=== PATIENT | male | born 1970 | race Caucasian/White ===

== ENCOUNTER 2018-03-31 18:45 | Emergency (ER) | payer OTHER ==
[~2018-03-31] VITALS: Ht 185.4 cm; Wt 131.5 kg
[~2018-03-31 18:45] MED LIST: ATOR20TA58 PO; LEVO50TA5 PO
[2018-03-31] MEDS ORDERED: IV NORMAL SALINE 1,000ML 1,000 ML IV SCH (19:26)
--- NOTE | 2018-03-31 19:31 | PHYS DOC ---
Adult General Chief Complaint Chief Complaint: CHEST PAIN [facility] HPI Patient is a 47-year-old male who presents with complaint of chest pain that started approximately 1 hour prior to arrival. Patient states that he had been sitting down watching TV when he had a feeling of like some fluttering in his chest for short period of time like his heart skipped a beat. He states that shortly thereafter he developed burning in his chest that lasted for nearly an hour until he arrived to the emergency room. He states upon arrival to the emergency room the pain had resolved. He rates pain as mild to moderate. He does admit that he had been out drinking fairly heavily last night and so thinks that may have been part of the problem. He states that he recently had a stress test in preparation for neck surgery which had returned unremarkable. Currently patient is asymptomatic. Review of Systems Review of Systems Constitutional: Denies fever or chills [] Respiratory: Denies cough or shortness of breath [] Cardiovascular: No additional information not addressed in HPI [] GI: Denies abdominal pain, nausea, vomiting, bloody stools or diarrhea [] Musculoskeletal: Denies back pain or joint pain [] All other systems were reviewed and found to be within normal limits, except as documented in this note. Allergies Allergies Allergies Coded Allergies Type Severity Reaction Last Updated Verified Penicillins Allergy 04/29/13 Yes Physical Exam Physical Exam Constitutional: Well developed, well nourished, no acute distress, non-toxic appearance. [] HENT: Normocephalic, atraumatic, bilateral external ears normal, oropharynx moist, no oral exudates, nose normal. [] Eyes: PERRLA, EOMI, conjunctiva normal, no discharge. [] Neck: Normal range of motion, no tenderness, supple, no stridor. [] Cardiovascular: Regular rate and rhythm[] Lungs & Thorax: Bilateral breath sounds clear to auscultation [] Abdomen: Bowel sounds normal, soft, no tenderness. [] Skin: Warm, dry, no erythema, no rash. [] Extremities: No tenderness, no cyanosis, no clubbing, ROM intact, no edema. [] Neurologic: Alert and oriented X 3, no focal deficits noted. [] EKG EKG EKG demonstrates mild sinus tachycardia with rate of 103.[] Radiology/Procedures Radiology/Procedures [] Impressions: PROCEDURE: PORTABLE CHEST 1V CLINICAL INDICATION: Chest pain, heart palpitations, no hx injury or surgery COMPARISON: None FINDINGS: No pneumothorax identified. Cardiac and mediastinal contours unremarkable. No pulmonary consolidation or acute airspace disease. No acute osseous abnormalities identified. IMPRESSION: No pulmonary consolidation or acute airspace disease. Electronically signed by: Zen Santillan DO (03/31/2018 8:41 PM) [facility] Course & Med Decision Making Course & Med Decision Making Pertinent Labs and Imaging studies reviewed. (See chart for details) [] Dragon Disclaimer Dragon Disclaimer This electronic medical record was generated, in whole or in part, using a voice recognition dictation system. Departure Departure: Impression: Primary Impression: Atypical chest pain Additional Impression: Hypertension Disposition: 01 HOME, SELF-CARE Condition: STABLE Referrals: KODAK HERNANDEZ MD (PCP) Patient Instructions: Chest Pain (Nonspecific), Hypertension Scripts Lisinopril (LISINOPRIL) 10 Mg Tablet 10 MG PO DAILY for hypertension, #30 TAB 0 Refills Prov: HENRY PLAZA Jr., DO 03/31/18 Problem Qualifiers Additional Impression: Hypertension Hypertension type: essential hypertension Qualified Codes: I10 - Essential ( primary) hypertension HENRY PLAZA Jr., DO Mar 31, 2018 19:31
[2018-03-31 19:35] LABS: BASO % 0 % (0-3); EOS # 0.2 x10^3/uL (0.0-0.7); EOS % 2 % (0-3); HEMATOCRIT 46.4 % (39.0-53.0); HEMOGLOBIN 15.5 g/dL (13.0-17.5); LYMPH # 2.3 x10^3/uL (1.0-4.8); LYMPH % 20 % (24-48); MEAN CORPUSCULAR HEMOGLOBIN 30 pg (25-35); MEAN CORPUSCULAR HGB CONC 33 g/dL (31-37); MEAN CORPUSCULAR VOLUME 89 fL (79-100); MONO # 0.9 x10^3/uL (0.0-1.1); MONO % 8 % (0-9); NEUT # 8.1 x10^3uL (1.8-7.7); NEUT % 70 % (31-73); PLATELET COUNT 141 x10^3/uL (140-400); RED CELL DISTRIBUTION WIDTH 13.4 % (11.5-14.5); WHITE BLOOD COUNT 11.5 x10^3/uL (4.0-11.0)
[2018-03-31 19:43] LABS: ALBUMIN 3.8 g/dL (3.4-5.0); ALBUMIN/GLOBULIN RATIO 0.9 (1.0-1.7); CALCIUM 9.2 mg/dL (8.5-10.1); GFR 80.1; MAGNESIUM 1.8 mg/dL (1.8-2.4); POTASSIUM 3.9 mmol/L (3.5-5.1); TOTAL BILIRUBIN 0.4 mg/dL (0.2-1.0); TOTAL PROTEIN 7.9 g/dL (6.4-8.2)
[2018-03-31 20:06] LABS: BACTERIA,URINE 0 /HPF (0-FEW); BILIRUBIN,URINE NEG (NEG); CLARITY,URINE CLEAR; COLOR,URINE YELLOW; GLUCOSE,URINE >=1000 mg/dL (NEG); HYALINE CASTS, URINE FEW /HPF; NITRITE,URINE NEG (NEG); SQUAMOUS EPITHELIAL CELL,UR OCC /LPF; UROBILINOGEN,URINE 0.2 mg/dL (0.2 mg/dL)
--- NOTE | 2018-03-31 20:43 | RAD ---
PROCEDURE: PORTABLE CHEST 1V CLINICAL INDICATION: Chest pain, heart palpitations, no hx injury or surgery COMPARISON: None FINDINGS: No pneumothorax identified. Cardiac and mediastinal contours unremarkable. No pulmonary consolidation or acute airspace disease. No acute osseous abnormalities identified. IMPRESSION: No pulmonary consolidation or acute airspace disease. Electronically signed by: Zen Santillan DO (03/31/2018 8:41 PM) [facility]
[2018-03-31] MEDS ORDERED: LISINOPRIL 10 MG TABLET ONE ×2 (22:04)
[2018-03-31] MEDS ORDERED: LISI10TA2 PO (22:07)
[2018-03-31] MEDS ORDERED: LISINOPRIL 5 MG TABLET. PO ONE (22:15)
[2018-03-31 22:30] VITALS: BP 175/113
[2018-03-31] MEDS ORDERED: LISINOPRIL 10 MG TABLET PO ONE (22:30)
--- NOTE | 2018-04-01 19:46 | EKG ---
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 Electronically Signed On 04-02-2018 11:03:38 WHEEL FITTER by Philip Beatty
== END 2018-03-31 23:05 | disposition home or self-care (01) ==
LOC: ER 18:45
DX: R07.89 Other chest pain (principal); I10 Essential (primary) hypertension; Z88.0 Allergy status to penicillin
CPT/HCPCS: 36415; 71045; 80053; 81001; 83690; 83735; 84484; 85025; 93005; 99284-25; J7030

== ENCOUNTER 2019-08-11 | Observation (INO) | payer OTHER ==
[~2019-08-11] VITALS: Ht 185.4 cm; Wt 135.4 kg
[~2019-08-11] MED LIST changes: +LISI10TA2 PO
[2019-08-11] MEDS ORDERED: MORPHINE SULFATE 2 MG/ML DISP.SYRIN. IV/SQ PRN (00:15)
--- NOTE | 2019-08-11 00:15 | PHYS DOC ---
Past History Past Medical History: Diabetes, High Cholesterol, Hypertension Past Surgical History: Cervical Fusion Smoking: Cigarettes Alcohol Use: Occasionally Drug Use: None General Adult HPI: HPI: ".. I ve had thisLLt side chest pain tonight.. it been going on constant .last 3 to 4 hrs..." Patient is a 48 year old male who presents with Lt sided chest pain the last 3 and 1/2 hours. Pt. rates. pain as 08/15.. Patient does give a history of tobacco use, Elevated cholesterol, and hypertension. Patient normally follows with Dr. Lew . No history of coagulopathy or pulmonary embolism.. No history of trauma. Patient denies any previous history of heart attacks. Patient did vomit x1. Patient states pain has been constant. No recent travel. No specific ill contacts. Denies fever or chills. No history immunosuppression. Patient only follows with Dr. Lew.. Review of Systems: Review of Systems: Constitutional: Denies fever or chills Eyes: Denies change in visual acuity HENT: Denies nasal congestion or sore throat Respiratory: Denies cough or shortness of breath Cardiovascular: Complains of chest pain GI: Denies abdominal pain, nausea, vomiting, bloody stools or diarrhea : Denies dysuria Musculoskeletal: Denies back pain or joint pain Integument: Denies rash Neurologic: Denies headache, focal weakness or sensory changes Endocrine: Denies polyuria or polydipsia Lymphatic: Denies swollen glands Psychiatric: Denies depression or anxiety Heart Score: HEART Score for Chest Pain: HEART Score for Chest Pain Response (Comments) Value History Slighlty/Non-Suspicious 0 ECG Normal 0 Age >45 - < 65 1 Risk Factors 1 or 2 Risk Factors 1 Troponin < Normal Limit 0 Total 2 Risk Factors: Risk Factors: DM, Current or recent (<one month) smoker, HTN, HLP, family history of CAD, obesity. Risk Scores: Score 0 - 3: 2.5% MACE over next 6 weeks - Discharge Home Score 4 - 6: 20.3% MACE over next 6 weeks - Admit for Clinical Observation Score 7 - 10: 72.7% MACE over next 6 weeks - Early Invasive Strategies Family History: Family History: Noncontributory to presentation Current Medications: Current Meds: See nursing for home meds Allergies: Allergies: Allergies Coded Allergies Type Severity Reaction Last Updated Verified Penicillins Allergy 04/29/13 Yes Physical Exam: PE: Constitutional: Well developed, well nourished, moderate acute distress, non- toxic appearance. [] HENT: Normocephalic, atraumatic, bilateral external ears normal, oropharynx moist, no oral exudates, nose normal. [] Eyes: PERRLA, EOMI, conjunctiva normal, no discharge. Glasses Neck: Normal range of motion, no tenderness, supple, no stridor. Old surgery scars Cardiovascular: Tachycardia heart rate regular rhythm, no murmur [] Lungs & Thorax: Bilateral breath sounds equal apex with scattered wheezes on auscultation []. No pain on palpation of chest wall Abdomen: Bowel sounds normal, soft, no tenderness, no masses, no pulsatile masses. Obese. Patient claims rectal exam at this time. Patient denies any tarry stools. Skin: Warm, dry, no erythema, no rash. [] Sunburn Back: No tenderness, no CVA tenderness. [] Extremities: No tenderness, no cyanosis, no clubbing, ROM intact, no edema. No cording appreciated Neurologic: Alert and oriented X 3, normal motor function, normal sensory function, no focal deficits noted. [] Psychologic: Affect anxious, judgement normal, mood normal. [] EKG: EKG: My interpretation EKG shows a sinus rhythm with bimodal P waves. No findings of acute STEMI with contralateral changes Radiology/Procedures: Radiology/Procedures: [][address] [address] IMAGING REPORT Signed PATIENT: KWAME PHILLIPS ACCOUNT: [id number] : 1970 LOCATION: ER AGE: 48 SEX: M EXAM STATUS: REG ER ORD. PHYSICIAN: SABA RAO MD REASON: Chest pain PROCEDURE: PORTABLE CHEST 1V PORTABLE CHEST 1V INDICATION: Reason: Chest pain / Spl. Instructions: / History: . COMPARISON STUDY: 03/31/2018. FINDINGS: Lungs: Normal lung volume. No pulmonary mass or consolidation. The tracheobronchial tree and hilar structures are normal. Pleura: No pleural effusion or pneumothorax. Heart and Mediastinum: The cardiomediastinal silhouette is normal. The great vessels of the thorax are normal. IMPRESSION: No acute cardiopulmonary process. Electronically signed by: Sharonda Duarte MD (08/11/2019 1:29 AM) [facility] DICTATED AND SIGNED BY: SHARONDA DUARTE MD DATE: 08/11/19 0129 CC: SABA RAO MD; PCP,NO ~ Course & Med Decision Making: Course & Med Decision Making Pertinent Labs and Imaging studies reviewed. (See chart for details) Discussed presentation, testing and tx. plan with Dr. Richardson. Admit observation status with Cardiology consult. Impression; 1. Chest Pain 2. HTN 3. Hx. Elevated Lipids 4. Tobacco use 5. Diabetes glucose 215 6. Elevated creatinine 1.4 7. Elevated AST and ALT 45/70 8. Elevated d-dimer 1.70 9. Thrombocytopenia 113 10. Pulmonary nodule [] Dragon Disclaimer: Dragon Disclaimer: This electronic medical record was generated, in whole or in part, using a voice recognition dictation system. Departure Departure: Disposition: 01 HOME/RESIDENCE PRIOR TO ADM Condition: STABLE Referrals: PCP,NO (PCP) Justification of Admission: Justification of Admission: Justification of Admission Dx: Yes Angina: New-Onset Dragon Disclaimer This chart was dictated in whole or in part using Voice Recognition software in a busy, high-work load, and often noisy Emergency Department environment. It may contain unintended and wholly unrecognized errors or omissions. Dragon Disclaimer This chart was dictated in whole or in part using Voice Recognition software in a busy, high-work load, and often noisy Emergency Department environment. It may contain unintended and wholly unrecognized errors or omissions. SABA RAO MD Aug 11, 2019 00:15
[2019-08-11] MEDS ORDERED: NITROGLYCERIN OINT 1 GM PACKET. TP ONE (00:30)
[2019-08-11] MEDS ORDERED: FAMOTIDINE 20 MG/2 ML VIAL IVP ONE (00:30)
[2019-08-11] MEDS ORDERED: ASPIRIN CHEWABLE 81 MG TABLET. PO ONE ×2 (00:30→02:00)
[2019-08-11] MEDS ORDERED: ENOXAPARIN ** NOTE DOSE ** SYRINGE SQ ONE (00:30)
[2019-08-11 00:38] LABS: BASO % 0 % (0-3); EOS # 0.1 x10^3/uL (0.0-0.7); EOS % 2 % (0-3); HEMOGLOBIN 15.2 g/dL (13.0-17.5); LYMPH # 2.5 x10^3/uL (1.0-4.8); LYMPH % 27 % (24-48); MEAN CORPUSCULAR HEMOGLOBIN 32 pg (25-35); MEAN CORPUSCULAR HGB CONC 35 g/dL (31-37); MEAN CORPUSCULAR VOLUME 93 fL (79-100); MONO # 1.1 x10^3/uL (0.0-1.1); MONO % 12 % (0-9); NEUT # 5.5 x10^3uL (1.8-7.7); NEUT % 60 % (31-73); PLATELET COUNT 113 x10^3/uL (140-400); RED BLOOD COUNT 4.75 x10^6/uL (4.30-5.70); WHITE BLOOD COUNT 9.2 x10^3/uL (4.0-11.0)
[2019-08-11] MEDS: IV RINGERS SOLUTION,LACTATED 1,000 ML IV SCH ×2 (00:45→05:31)
[2019-08-11 00:46] LABS: CALCIUM 8.7 mg/dL (8.5-10.1); CREATININE 1.4 mg/dL (0.7-1.3); GFR 54.1; POTASSIUM 3.7 mmol/L (3.5-5.1)
[2019-08-11 00:58] LABS: ALBUMIN 3.7 g/dL (3.4-5.0); DIRECT BILIRUBIN 0.1 mg/dL (0.0-0.2); TOTAL BILIRUBIN 0.3 mg/dL (0.2-1.0); TOTAL PROTEIN 7.5 g/dL (6.4-8.2)
[2019-08-11] MEDS ORDERED: ACETAMINOPHEN 325 MG TABLET PO PRN (01:30)
[2019-08-11] MEDS ORDERED: ONDANSETRON PF 4 MG/2 ML VIAL. IVP PRN (01:30)
[2019-08-11] MEDS ORDERED: MORPHINE SULFATE 2 MG/ML DISP.SYRIN. IVP PRN (01:30)
--- NOTE | 2019-08-11 01:32 | RAD ---
PORTABLE CHEST 1V INDICATION: Reason: Chest pain / Spl. Instructions: / History: . COMPARISON STUDY: 03/31/2018. FINDINGS: Lungs: Normal lung volume. No pulmonary mass or consolidation. The tracheobronchial tree and hilar structures are normal. Pleura: No pleural effusion or pneumothorax. Heart and Mediastinum: The cardiomediastinal silhouette is normal. The great vessels of the thorax are normal. IMPRESSION: No acute cardiopulmonary process. Electronically signed by: Zachary Duarte MD (08/11/2019 1:29 AM) [facility]
[2019-08-11] MEDS ORDERED: ANTI-COAG MONITOR BY PHARMACY. MC PRN (01:45)
[2019-08-11] MEDS ORDERED: CONTRAST GIVEN. MC PRN (01:45)
[2019-08-11] MEDS ORDERED: IPRATRPIUM/ALBUTEROL 0.5/2.5MG 3 ML NEBU. ONE (01:51)
[2019-08-11] MEDS ORDERED: IOHEXOL 350 MG/ML 100 ML VIAL. IV ONE (02:00)
--- NOTE | 2019-08-11 02:47 | RAD ---
CT ANGIOGRAPHY CHEST INDICATION: Reason: Chest wall pain, short of air / Spl. Instructions: / History: . Comparison: None. TECHNIQUE: Following the uneventful administration of intravenous contrast, 75 cc Omnipaque 350, axial CT sections were obtained through the lungs and upper abdomen. Multiplanar reconstructions and MIP images were obtained. RS compliance statement: One or more of the following individualized dose reduction techniques were utilized for this examination: 1. Automated exposure control 2. Adjustment of the mA and/or kV according to patient size 3. Use of iterative reconstruction technique FINDINGS: Pulmonary arteries: Nondiagnostic evaluation of the pulmonary arteries due to suboptimal contrast opacification. Lungs and Airways: No consolidation. Middle lobe subpleural nodule measuring 0.9 cm (series 4 image 95). No abnormality of the central airways. Pleura: The pleural spaces are normal. Heart and Mediastinum: The visualized thyroid is normal in size and attenuation. No axillary or supraclavicular lymphadenopathy. No mediastinal, hilar or retrocrural lymphadenopathy. Normal cardiac size. Coronary artery atherosclerotic disease. No pericardial effusion. The great vessels of the thorax are normal. Abdomen: Hepatic steatosis.. Bones and Soft Tissues: The visualized bones and chest wall soft tissues are within normal limits. IMPRESSION: 1. Nondiagnostic evaluation of the pulmonary arteries due to suboptimal contrast opacification. 2. No consolidation. 3. Indeterminate middle lobe nodule measuring 0.9 cm. Recommend three-month follow-up chest CT to assess stability. This may be below size threshold for PET sensitivity. 4. Coronary artery atherosclerotic disease. Electronically signed by: Zachary Duarte MD (08/11/2019 2:44 AM) [facility]
[2019-08-11 02:53] LABS: BILIRUBIN,URINE NEG (NEG); CLARITY,URINE CLEAR; COLOR,URINE YELLOW; GLUCOSE,URINE >=1000 mg/dL (NEG)
[2019-08-11 02:54] LABS: BACTERIA,URINE 0 /HPF (0-FEW); NITRITE,URINE NEG (NEG); RBC,URINE 0 /HPF (0-2); SQUAMOUS EPITHELIAL CELL,UR OCC /LPF; UROBILINOGEN,URINE 0.2 mg/dL (0.2 mg/dL); WBC,URINE OCC /HPF (0-4)
[2019-08-11 02:58] LABS: BARBITURATES NEG (NEG); BENZODIAZEPINES NEG (NEG); CANNABINOIDS NEG (NEG); COCAINE NEG (NEG); METHADONE NEG (NEG); OPIATES POS (NEG); PHENCYCLIDINE NEG (NEG)
[2019-08-11 03:00] LABS: AMPHETAMINE/METHAMPHETAMINE NEG (NEG)
--- NOTE | 2019-08-11 03:53 | NUR ---
The patient, KWAME PHILLIPS, 48 y/o, M admitted by DEANDRE NANCE MD, was given written information regarding hospital policies, unit procedures and contact persons. Valuables were checked and logged. Call light in place. Will continue to monitor.
[2019-08-11 05:00] VITALS: BP 125/72
--- NOTE | 2019-08-11 05:29 | EKG ---
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
--- NOTE | 2019-08-11 05:43 | NUR ---
Pt does not know his medications. Will get the pictures of the medications in the am. Pt is a diabetic and takes Metformin however he does not check his blood sugar. Will continue to monitor.
--- NOTE | 2019-08-11 05:45 | NUR ---
Routine consult called to [facility] cardio at this time.
[2019-08-11 06:10] VITALS: BP 109/54
--- NOTE | 2019-08-11 06:57 | NUR ---
Pt admitted from ED to Covid unit. Diagnosis Chest pain and HTN. No home RT meds. Temp 98.9. Spo2 96-97% on RA. CXR- No acute Cardiopulmonary process. Pt. denies cough or SOA. Pt ordered on Duoneb txs QID. Requesting that these be cancelled. Thank you.
[2019-08-11] MEDS ORDERED: IPRATRPIUM/ALBUTEROL 0.5/2.5MG 3 ML NEBU. NEB SCH (08:00)
[2019-08-11 08:09] LABS: CALCIUM 8.6 mg/dL (8.5-10.1); CREATININE 1.2 mg/dL (0.7-1.3); GFR 64.6; POTASSIUM 3.8 mmol/L (3.5-5.1)
[2019-08-11 08:14] LABS: BASO # 0.1 x10^3/uL (0.0-0.2); BASO % 1 % (0-3); EOS # 0.1 x10^3/uL (0.0-0.7); EOS % 2 % (0-3); HEMATOCRIT 41.2 % (39.0-53.0); HEMOGLOBIN 14.1 g/dL (13.0-17.5); LYMPH # 2.6 x10^3/uL (1.0-4.8); LYMPH % 34 % (24-48); MEAN CORPUSCULAR HEMOGLOBIN 32 pg (25-35); MEAN CORPUSCULAR HGB CONC 34 g/dL (31-37); MEAN CORPUSCULAR VOLUME 93 fL (79-100); MONO # 0.8 x10^3/uL (0.0-1.1); MONO % 10 % (0-9); NEUT # 4.1 x10^3uL (1.8-7.7); NEUT % 54 % (31-73); PLATELET COUNT 96 x10^3/uL (140-400); RED BLOOD COUNT 4.42 x10^6/uL (4.30-5.70); RED CELL DISTRIBUTION WIDTH 14.1 % (11.5-14.5); WHITE BLOOD COUNT 7.7 x10^3/uL (4.0-11.0)
[2019-08-11] MEDS: NITROGLYCERIN OINT 1 GM PACKET. TP SCH ×2 (09:00→14:00)
[2019-08-11] MEDS ORDERED: ENOXAPARIN ** NOTE DOSE ** SYRINGE SQ SCH ×2 (09:00)
[2019-08-11 11:03] VITALS: BP 150/86
[2019-08-11 12:50] LABS: THYROID STIM HORMONE (TSH) 2.719 uIU/mL (0.358-3.740)
--- NOTE | 2019-08-11 12:50 | PDOC2 ---
CONSULT Date of Admission DATE: 08/11/19 TIME: 12:50 Reason for Consult: Chest pain Referring Physician: Dr. Richardson Chief Complaint Chest pain Source: Chart review, Patient Problem List Problems Medical Problems: (1) Chest pain Status: Acute History of Present Illness 48-year-old male without any previous cardiac history presented complaining of left-sided chest pain that he rated at 5/10 severity not related to exertion and aching in nature. He denied any orthopnea/PND, palpitations or syncope. Past Medical History Hypertension Hyperlipidemia Diabetes mellitus type 2 Past Surgical History Cervical fusion Family History Negative for premature coronary artery disease and positive hypertension Social History Patient smokes approximately 1 pack of cigarettes per week, admitted to consuming alcohol over the weekends and denied any drug abuse Current Medications Current Medications Aspirin (Aspirin Chewable) 324 mg 1X ONCE PO Last administered on 08/11/19at 00:46; Start 08/11/19 at 00:30; Stop 08/11/19 at 00:31; Status DC Enoxaparin Sodium (Lovenox 150mg Syringe) 130 mg 1X ONCE SQ Last administered on 08/11/19at 00:46; Start 08/11/19 at 00:30; Stop 08/11/19 at 00:31; Status DC Morphine Sulfate (Morphine 2mg Syringe) 2 mg PRN Q15MIN PRN IV/SQ PAIN GREATER THAN 3/10 Last administered on 08/11/19at 00:47; Start 08/11/19 at 00:15; Stop 08/11/19 at 07:16; Status DC Lactated Ringer's 1,000 ml @ 100 mls/hr Q10H IV Last administered on 08/11/19at 05:31; Start 08/11/19 at 00:30; Stop 08/11/19 at 10:29; Status DC Famotidine (Pepcid Vial) 20 mg 1X ONCE IVP Last administered on 08/11/19at 00:45; Start 08/11/19 at 00:30; Stop 08/11/19 at 00:31; Status DC Nitroglycerin (Nitro-Bid Oint) 1 inch 1X ONCE TP Last administered on 08/11/19at 00:46; Start 08/11/19 at 00:30; Stop 08/11/19 at 00:31; Status DC Ondansetron HCl (Zofran) 4 mg PRN Q4HRS PRN IVP NAUSEA/VOMITING; Start 08/11/19 at 01:30; Stop 08/12/19 at 01:29 Morphine Sulfate (Morphine 2mg Syringe) 2 mg PRN Q4HRS PRN IVP PAIN; Start 08/11/19 at 01:30; Stop 08/12/19 at 01:29 Acetaminophen (Tylenol) 650 mg PRN Q4HRS PRN PO FEVER > 100.3'F; Start 08/11/19 at 01:30; Stop 08/12/19 at 01:29 Albuterol/ Ipratropium (Duoneb) 3 ml RTQID NEB Last administered on 08/11/19at 01:55; Start 08/11/19 at 08:00; Stop 08/11/19 at 12:41; Status DC Aspirin (Aspirin Chewable) 81 mg 1X ONCE PO ; Start 08/11/19 at 02:00; Stop 08/11/19 at 02:01; Status DC Enoxaparin Sodium (Lovenox 150mg Syringe) 130 mg BID SQ ; Start 08/11/19 at 09:00; Stop 08/11/19 at 05:09; Status DC Nitroglycerin (Nitro-Bid Oint) 1 inch TID TP ; Start 08/11/19 at 09:00 Iohexol (Omnipaque 350 Mg/ml) 100 ml 1X ONCE IV Last administered on 08/11/19at 02:20; Start 08/11/19 at 02:00; Stop 08/11/19 at 02:01; Status DC Info (Do NOT chart on this entry -- for MONITORING) 1 each PRN DAILY PRN MC SEE COMMENTS; Start 08/11/19 at 01:45; Stop 08/13/19 at 01:44 Info (Anti-Coagulation Monitoring By Pharmacy) 1 each PRN DAILY PRN MC SEE COMMENTS; Start 08/11/19 at 01:45 Albuterol/ Ipratropium (Duoneb) 3 ml STK-MED ONCE .ROUTE ; Start 08/11/19 at 01:51; Stop 08/11/19 at 01:52; Status DC Enoxaparin Sodium (Lovenox 150mg Syringe) 130 mg Q12HR SQ Last administered on 08/11/19at 09:47; Start 08/11/19 at 09:00 Active Scripts Active Lisinopril 10 Mg Tablet 10 Mg PO DAILY Reported Atorvastatin Calcium 20 Mg Tablet 20 Mg PO DAILY08 Levothyroxine Sodium 50 Mcg Tablet 50 Mcg PO DAILY07 Allergies: Coded Allergies: Penicillins (Verified Allergy, 04/29/13) PSYCHOLOGICAL ROS: No: Hallucinations Eyes: No: Loss of vision HEENT: No: Epistaxis Respiratory: No: Hemoptysis, Shortness of breath Cardiovascular: yes: Chest Pain Gastrointestinal: No: Vomiting, Diarrhea Genitourinary: No: Henaturia Neurological: No: Seizures Skin: No: Rash General: Alert, Oriented X3 HEENT: Atraumatic, PERRLA Lungs: Clear to auscultation Heart: Regular rate Abdomen: Soft, No tenderness Extremities: No edema Psych/Mental Status: Mood NL VITALS Vital Signs Date Time Temp Pulse Resp B/P (MAP) Pulse Ox O2 Delivery O2 Flow Rate FiO2 08/11/19 11:03 98.3 64 20 150/86 (107) 95 Room Air Labs Laboratory Tests Test 08/11/19 00:19 08/11/19 02:05 08/11/19 07:17 08/11/19 07:29 White Blood Count 9.2 x10^3/uL (4.0-11.0) 7.7 x10^3/uL (4.0-11.0) Red Blood Count 4.75 x10^6/uL (4.30-5.70) 4.42 x10^6/uL (4.30-5.70) Hemoglobin 15.2 g/dL (13.0-17.5) 14.1 g/dL (13.0-17.5) Hematocrit 44.0 % (39.0-53.0) 41.2 % (39.0-53.0) Mean Corpuscular Volume 93 fL (79-100) 93 fL (79-100) Mean Corpuscular Hemoglobin 32 pg (25-35) 32 pg (25-35) Mean Corpuscular Hemoglobin Concent 35 g/dL (31-37) 34 g/dL (31-37) Red Cell Distribution Width 14.0 % (11.5-14.5) 14.1 % (11.5-14.5) Platelet Count 113 x10^3/uL (140-400) 96 x10^3/uL (140-400) Neutrophils (%) (Auto) 60 % (31-73) 54 % (31-73) Lymphocytes (%) (Auto) 27 % (24-48) 34 % (24-48) Monocytes (%) (Auto) 12 % (0-9) 10 % (0-9) Eosinophils (%) (Auto) 2 % (0-3) 2 % (0-3) Basophils (%) (Auto) 0 % (0-3) 1 % (0-3) Neutrophils # (Auto) 5.5 x10^3uL (1.8-7.7) 4.1 x10^3uL (1.8-7.7) Lymphocytes # (Auto) 2.5 x10^3/uL (1.0-4.8) 2.6 x10^3/uL (1.0-4.8) Monocytes # (Auto) 1.1 x10^3/uL (0.0-1.1) 0.8 x10^3/uL (0.0-1.1) Eosinophils # (Auto) 0.1 x10^3/uL (0.0-0.7) 0.1 x10^3/uL (0.0-0.7) Basophils # (Auto) 0.0 x10^3/uL (0.0-0.2) 0.1 x10^3/uL (0.0-0.2) Prothrombin Time 9.5 SEC (9.4-11.4) Prothromb Time International Ratio 0.9 (0.9-1.1) Activated Partial Thromboplast Time 26 SEC (23-33) D-Dimer (Che) 1.70 mg/L (0.00-0.50) Sodium Level 135 mmol/L (136-145) 135 mmol/L (136-145) Potassium Level 3.7 mmol/L (3.5-5.1) 3.8 mmol/L (3.5-5.1) Chloride Level 97 mmol/L (98-107) 100 mmol/L (98-107) Carbon Dioxide Level 28 mmol/L (21-32) 26 mmol/L (21-32) Anion Gap 10 (6-14) 9 (6-14) Blood Urea Nitrogen 20 mg/dL (8-26) 22 mg/dL (8-26) Creatinine 1.4 mg/dL (0.7-1.3) 1.2 mg/dL (0.7-1.3) Estimated GFR (Cockcroft-Gault) 54.1 64.6 Glucose Level 215 mg/dL (70-99) 189 mg/dL (70-99) Calcium Level 8.7 mg/dL (8.5-10.1) 8.6 mg/dL (8.5-10.1) Magnesium Level 2.0 mg/dL (1.8-2.4) Total Bilirubin 0.3 mg/dL (0.2-1.0) Direct Bilirubin 0.1 mg/dL (0.0-0.2) Aspartate Amino Transf (AST/SGOT) 45 U/L (15-37) Alanine Aminotransferase (ALT/SGPT) 76 U/L (16-63) Alkaline Phosphatase 83 U/L (46-116) Creatine Kinase 192 U/L (39-308) Troponin I Quantitative < 0.017 ng/mL (0-0.055) PA-Bmm-I-Type Natriuretic Peptide 23 pg/mL (0-124) Total Protein 7.5 g/dL (6.4-8.2) Albumin 3.7 g/dL (3.4-5.0) Lipase 286 U/L (73-393) Urine Collection Type Unknown Urine Color Yellow Urine Clarity Clear Urine pH 5.5 Urine Specific [place] 1.020 Urine Protein Neg (NEG-TRACE) Urine Glucose (UA) >=1000 mg/dL (NEG) Urine Ketones (Stick) Neg mg/dL (NEG) Urine Blood Neg (NEG) Urine Nitrite Neg (NEG) Urine Bilirubin Neg (NEG) Urine Urobilinogen Dipstick 0.2 mg/dL (0.2 mg/dL) Urine Leukocyte Esterase Neg (NEG) Urine RBC 0 /HPF (0-2) Urine WBC Occ /HPF (0-4) Urine Squamous Epithelial Cells Occ /LPF Urine Bacteria 0 /HPF (0-FEW) Urine Opiates Screen Pos (NEG) Urine Methadone Screen Neg (NEG) Urine Barbiturates Neg (NEG) Urine Phencyclidine Screen Neg (NEG) Urine Amphetamine/Methamphetamine Neg (NEG) Urine Benzodiazepines Screen Neg (NEG) Urine Cocaine Screen Neg (NEG) Urine Cannabinoids Screen Neg (NEG) Urine Ethyl Alcohol Neg (NEG) Glucose (Fingerstick) 176 mg/dL (70-99) Test 08/11/19 12:00 Glucose (Fingerstick) 152 mg/dL (70-99) Assessment/Plan 1. Chest pain with atypical features. Myocardial infarction has been ruled out. Plan for outpatient 2D echocardiogram to assess LV function and Lexiscan nuclear stress test to rule out ischemic etiology. 2. Hypertension: Controlled 3. Hyperlipidemia: LDL elevated at 153 and triglycerides elevated at 429. Increase atorvastatin to 40 mg QHS. If triglycerides are still elevated after stricter control of diet and better control of diabetes, consider initiation of vascepa or fibrates. 4. Diabetes mellitus type 2: Per IM Thank you for your consultation SHELDON DOHERTY MD Aug 11, 2019 12:50
[2019-08-11 15:03] VITALS: BP 142/75
[2019-08-11] MEDS ORDERED: ATOR40TA59 PO (16:55)
--- NOTE | 2019-08-11 17:11 | NUR ---
Pt discharged home for self care. Pt iv discontinued, pressure dressing applied, no complications. Pt given written and oral discharge, follow up and medication instructions. Pt left unit in stable condition via ambulation.
--- NOTE | 2019-08-11 17:33 | SSS ---
ADMIT DATE: 08/11/2019 HISTORY OF PRESENT ILLNESS: The patient is a 48-year-old male patient who presented to the Emergency Room with a complaint of left-sided chest pain that he rated as 5/10 in severity and not related to exertion or ache in nature. He denies any orthopnea or paroxysmal nocturnal dyspnea. Denied any palpitations. Denied any syncope. Denied any dizziness or lightheadedness. Denied any nausea, vomiting, diaphoresis or shortness of breath. He was investigated in the Emergency Room and has had his lab work done, which basically showed that he has elevated AST, ALT. His troponin was less than 0.017. His fasting lipid profile showed his total serum triglycerides were high at 429, total cholesterol was 267, LDL was 163, VLDL was 85, HDL was 29 and ratio was 9. His TSH was normal at 2.719. He was seen in consultation by the damage cutter and the plan was for him to be discharged home with an arrangement for outpatient two-dimensional echocardiogram as well as Lexiscan nuclear stress test to rule out ischemic etiology. PAST MEDICAL HISTORY: Significant for hypertension, hyperlipidemia, type 2 diabetes mellitus. PAST SURGICAL HISTORY: Significant for cervical spine fusion. FAMILY HISTORY: Negative for premature coronary artery disease and positive for hypertension. SOCIAL HISTORY: He smokes about a pack of cigarettes per week, admitted to consuming alcohol over the weekends and denied any drug abuse. MEDICATIONS: He is currently on following medications: He is on atorvastatin calcium 20 mg at bedtime, lisinopril 10 mg once a day and levothyroxine sodium 50 mcg once a day. ALLERGIES: He is allergic to PENICILLIN. REVIEW OF SYSTEMS: As per history of present illness. PHYSICAL EXAMINATION: GENERAL: On arrival to the Emergency Room, he looked well and was clearly in no apparent respiratory distress. No pallor, jaundice, cyanosis or thyromegaly. No jugular venous distention. No limb edema. VITAL SIGNS: His heart rate was 88, blood pressure was 154/88, temperature was 98, respiratory rate was 18 and oxygen saturation was 97%. HEAD, EYES, EARS, NOSE AND THROAT: Normocephalic, atraumatic. NECK: Supple. HEART: Showed normal first and second heart sounds. No gallop or murmur. CHEST: Clear to auscultation. No crepitation or rhonchi. ABDOMEN: Distended, soft, nontender. NEUROLOGIC: He was awake, alert, responding appropriately. All cranial nerves were intact. EXTREMITIES: He moves extremities without difficulty, ambulates without assistance or assistive devices. LABORATORY DATA: Showed a serum sodium of 135, potassium 3.7, chloride 97, bicarbonate 28, anion gap of 10, BUN 20, creatinine 1.4, estimated GFR was 54 mL per minute. His glucose was 215, calcium was 8.7, magnesium 2. Total bilirubin and alkaline phosphatase were normal. AST and ALT were slightly elevated. His CK was 192. Beta natriuretic peptide was 23. Total protein was 7.5, albumin was 3.7. Serum lipase was 286. His troponin was less than 0.017. His prothrombin time, INR and aPTT were normal. D-dimer was slightly elevated at 1.7. Urinalysis was essentially unremarkable and toxic screen was positive for opiates, negative for other drugs. He has had a chest x-ray, which basically showed no acute cardiopulmonary process. Given his elevated D-dimer, he underwent CT angiogram of the chest, which basically showed nondiagnostic evaluation of the pulmonary arteries due to suboptimal contrast opacification. No consolidation, indeterminate middle lobe nodule measuring 0.9 cm. Recommend 3-month followup chest CT to assess stability. As I stated, the patient was seen by the damage cutter who recommended basically that the patient can be discharged and he will have an outpatient echocardiogram to assess left ventricular systolic function and he will have also Lexiscan nuclear stress test to rule out ischemic etiology. His atorvastatin be increased to 40 mg. FINAL DISCHARGE DIAGNOSES: 1. Chest pain, atypical features, myocardial infarction has been ruled out. 2. Hypertension, well controlled. 3. Hyperlipidemia, LDL is elevated at and triglycerides high at 429. I will increase his atorvastatin to 40 mg at bedtime. His blood sugar obviously needs to be much better controlled and might require Vascepa or fibrates. 4. Type 2 diabetes mellitus, also suboptimally controlled. DEANDRE NANCE MD DR: ALEXEY/kristian JOB#: [id number] / [id number]
[2019-08-11] MEDS ORDERED: ATORVASTATIN CALCIUM 20 MG TABLET PO SCH (21:00)
== END 2019-08-11 17:00 | disposition home or self-care (01) ==
LOC: ER → 1 SOUTH 00:45 → ER 03:09
PROVIDERS: ADMIT Internal Medicine; ATTEND Internal Medicine
DX: R07.89 Other chest pain (principal); I10 Essential (primary) hypertension; E11.9 Type 2 diabetes mellitus without complications; E78.5 Hyperlipidemia, unspecified; F17.210 Nicotine dependence, cigarettes, uncomplicated; R91.1 Solitary pulmonary nodule; E78.00 Pure hypercholesterolemia, unspecified; Z98.1 Arthrodesis status; Z79.899 Other long term (current) drug therapy
CPT/HCPCS: 36415; 71045; 71275; 80048; 80061; 80076; 80307; 81001; 82550; 82947; 83690; 83735; 83880; 84443; 84484; 85025; 85379; 85610; 85730; 86705; 86709; 86803; 87340; 93005; 94640; 96372; 96374; 96375; 99285; G0378; J1650; J2270; J3490; J7120; Q9967; G0379

== ENCOUNTER 2019-10-12 21:13 | Emergency (ER) | payer OTHER ==
[~2019-10-12] VITALS: Ht 185.4 cm; Wt 135.4 kg
[~2019-10-12 21:13] MED LIST changes: +ATOR40TA59 PO
--- NOTE | 2019-10-12 21:31 | PHYS DOC ---
Past History Past Medical History: Diabetes, High Cholesterol, Hypertension Past Surgical History: Cervical Fusion, Other Additional Past Surgical Histo: CERVICAL FUSION Smoking: Cigarettes Alcohol Use: Occasionally Drug Use: None Adult General Chief Complaint Chief Complaint: MULTIPLE COMPLAINTS HPI HPI Patient is a 48-year-old male who presents for multiple complaints. Patient reports x3 days of URI-like symptoms without fever. Patient works for [employer] and exposed to general public daily, denies any known or obvious COVID- 19 exposures. Today, patient reports feeling under the weather and had not eaten anything, he ate a hamburger from [employer] and roughly 2 hours afterwards, felt chills, diaphoretic, nauseous, had substernal chest pain, shortness of breath, x1 episode of nonbilious nonbloody emesis, and x3 episodes of loose stool. Patient reports history of anxiety and said he was not sure if these were true symptoms or him being anxious. He has never felt like this before. He has no known history of CAD but numerous other risk factors, he is obese, hypertensive, hypercholesterolemia, and a ofo-rhukyts-chukevrlg type 2 diabetic. Patient reports symptomology improved after his drive home but on talking to family members, they recommended he drive to our ER for formal ev aluation Review of Systems Review of Systems Fourteen body systems of review of systems have been reviewed. See HPI for pertinent positives and negative responses, other lu all other systems are negative, non-pertinent or non-contributory Allergies Allergies Allergies Coded Allergies Type Severity Reaction Last Updated Verified Penicillins Allergy 04/29/13 Yes Physical Exam Physical Exam Constitutional: Well developed, obese, well nourished, no acute distress, non- toxic appearance. HENT: Normocephalic, atraumatic, bilateral external ears normal, bilateral tympanic membranes without acute or obvious disease, moderate fluid buildup behind right tympanic membrane, postnasal drip present, oropharynx moist, no oral exudates, nose normal. Eyes: PERRLA, EOMI, conjunctiva normal, no discharge. Neck: Normal range of motion, no tenderness, supple, no stridor. Cardiovascular: Heart rate regular, sinus rhythm, no murmurs rubs or gallops Lungs & Thorax: Bilateral breath sounds clear to auscultation Abdomen: Bowel sounds normal, protuberant abdomen, soft, no tenderness, no masses, no pulsatile masses. Nonsurgical abdomen, no peritoneal signs Skin: Warm, dry, no erythema, no rash. Back: No tenderness, no CVA tenderness. Extremities: No tenderness, no cyanosis, no clubbing, ROM intact, no edema. Neurologic: Alert and oriented X 3, grossly normal motor & sensory function, no focal deficits noted. Psychologic: Affect normal, judgement normal, mood normal. Current Patient Data Vital Signs Vital Signs Date Time Temp Pulse Resp B/P (MAP) Pulse Ox O2 Delivery O2 Flow Rate FiO2 10/12/19 21:44 79 20 148/84 (105) 97 Room Air Lab Results Laboratory Tests Test 10/12/19 22:20 White Blood Count 5.9 x10^3/uL (4.0-11.0) Red Blood Count 4.94 x10^6/uL (4.30-5.70) Hemoglobin 16.1 g/dL (13.0-17.5) Hematocrit 46.6 % (39.0-53.0) Mean Corpuscular Volume 94 fL (79-100) Mean Corpuscular Hemoglobin 33 pg (25-35) Mean Corpuscular Hemoglobin Concent 35 g/dL (31-37) Red Cell Distribution Width 13.3 % (11.5-14.5) Platelet Count 98 x10^3/uL (140-400) Neutrophils (%) (Auto) 66 % (31-73) Lymphocytes (%) (Auto) 22 % (24-48) Monocytes (%) (Auto) 9 % (0-9) Eosinophils (%) (Auto) 2 % (0-3) Basophils (%) (Auto) 1 % (0-3) Neutrophils # (Auto) 3.9 x10^3uL (1.8-7.7) Lymphocytes # (Auto) 1.3 x10^3/uL (1.0-4.8) Monocytes # (Auto) 0.5 x10^3/uL (0.0-1.1) Eosinophils # (Auto) 0.1 x10^3/uL (0.0-0.7) Basophils # (Auto) 0.1 x10^3/uL (0.0-0.2) Platelet Estimate Decreased (ADEQUATE) Giant Platelets Occ Sodium Level 131 mmol/L (136-145) Potassium Level 3.7 mmol/L (3.5-5.1) Chloride Level 97 mmol/L (98-107) Carbon Dioxide Level 27 mmol/L (21-32) Anion Gap 7 (6-14) Blood Urea Nitrogen 16 mg/dL (8-26) Creatinine 1.3 mg/dL (0.7-1.3) Estimated GFR (Cockcroft-Gault) 58.9 BUN/Creatinine Ratio 12 (6-20) Glucose Level 295 mg/dL (70-99) Calcium Level 8.9 mg/dL (8.5-10.1) Total Bilirubin 0.4 mg/dL (0.2-1.0) Aspartate Amino Transf (AST/SGOT) 75 U/L (15-37) Alanine Aminotransferase (ALT/SGPT) 131 U/L (16-63) Alkaline Phosphatase 76 U/L (46-116) Troponin I Quantitative < 0.017 ng/mL (0-0.055) Total Protein 8.2 g/dL (6.4-8.2) Albumin 3.7 g/dL (3.4-5.0) Albumin/Globulin Ratio 0.8 (1.0-1.7) Lipase 139 U/L (73-393) EKG EKG EKG ordered and interpreted by myself at 2202 hrs. as sinus rhythm at 74 bpm, unremarkable intervals, no axis deviation, no acute ischemic findings, no STEMI Radiology/Procedures Radiology/Procedures PROCEDURE: PORTABLE CHEST 1V PORTABLE CHEST 1V Clinical History: Reason: cp / Spl. Instructions: / History: Technique: AP view of the chest was obtained at 10/12/2019 10:00 PM. Comparison: August 11, 2019. Findings: The cardiomediastinal silhouette is normal. The pulmonary vasculature is normal. The lungs and pleural margins are clear. Impression: No evidence of an acute cardiopulmonary process. Electronically signed by: Clifford Sim III, MD (10/12/2019 11:12 PM) [facility] Course & Med Decision Making Course & Med Decision Making Patient seen and evaluated by myself on immediate ER arrival Airway patent, breathing unlabored, vitals remarkable for slight hypertensive reading otherwise non-concerning, IV access obtained Comprehensive history and physical exam obtained, subsequent diagnostic studies ordered 325 mg aspirin and 1 L normal saline administered Patient reassessed numerous times throughout ER visit, reports improved symptoms. Reports being in isolation room relaxed his nerves and eased his anxiety Reviewed grossly negative work-up with patient, discussed heart score and me aning, discussed little utility in further diagnostic studies or inpatient admission I discussed most likely diagnosis of viral syndrome, cannot rule out COVID-19 at this time so patient will go home as a person under investigation with supportive care advised Patient has PCP, reports he will be able to see PCP in upcoming 3 to 14 days time for outpatient follow-up regarding today's visit I discussed patient's uncontrolled hyperglycemia, hypertension, and transaminitis and need to follow-up with PCP in outpatient setting, he understood this well Ultimately, strict return precautions discussed with good understanding by patient, all questions and concerns addressed prior to ER departure in improved condition Dragon Disclaimer Dragon Disclaimer This electronic medical record was generated, in whole or in part, using a voice recognition dictation system. The HEART Score for CP Pts HEART Score for Chest Pain: HEART Score for Chest Pain Response (Comments) Value History Slighlty/Non-Suspicious 0 ECG Normal 0 Age >45 - < 65 1 Risk Factors >3 Risk Factors or Hx CAD 2 Troponin < Normal Limit 0 Total 3 Risk Factors: Risk Factors: DM, Current or recent (<one month) smoker, HTN, HLP, family history of CAD, obesity. Risk Scores: Score 0 - 3: 2.5% MACE over next 6 weeks - Discharge Home Score 4 - 6: 20.3% MACE over next 6 weeks - Admit for Clinical Observation Score 7 - 10: 72.7% MACE over next 6 weeks - Early Invasive Strategies Departure Departure: Impression: Primary Impression: Chest pain Additional Impressions: Viral syndrome Transaminitis HTN (hypertension) Person under investigation for COVID-19 Disposition: HOME/RESIDENCE PRIOR TO ADM Condition: IMPROVED Referrals: PCP,NO (PCP) Additional Instructions: Short You were evaluated in the Emergency Department today for a cough. Your evaluation suggests a viral infection such as Coronavirus. It is important that you continue to self isolate and practice good hygiene at home. Please follow up with your primary care physician as discussed. Return to the Emergency Department if you experience worsening cough, fever, shortness of breath, recurrent vomiting, lethargy, or any other concerning symptoms. Thank you for choosing us for your care. Usted fue evaluado en el Departamento de Emergencia hoy por tos. Chand evaluacin sugiere tory infeccin viral princess el coronavirus. Es importante que contine aislndose y practicando tory buena higiene en el hogar. Jazz un seguimiento con chand mdico de atencin primaria princess se discuti. Regrese al Departamento de Emergencias si experimenta un empeoramiento de la tos, fiebre, falta de aliento, vmitos recurrentes, letargo o cualquier otro sntoma relacionado. [place] por elegir nosotros para chand atencin. Home Care Instructions for Patients with Mild Respiratory Infection Most people with respiratory infections like colds, the flu, and Coronavirus Disease (COVID-19) will have mild illness and can get better with appropriate home care and without the need to see a provider. People who are elderly, , or have a weak immune system, or other medical problem are at higher risk of more serious illness or complications. It is recommended that they carefully monitor their symptoms closely and seek medical care early if their symptoms get worse. TREATMENT AND MEDICAL CARE Treatment There is no specific treatment for most viruses including those that that cause the common cold and those that cause COVID-19. Sometimes there is treatment for the viruses that cause influenza if given early. Antibiotics treat infections caused by bacteria, but they do not work against viruses.Most people recover on their own from these viruses, including COVID-19. Here are steps that you can take to help you get better: Rest Drink plenty of fluids Take fiwi-flu-ovnxlza cold and flu medications to reduce fever and pain. Follow the instructions on the package, unless your doctor gave you instructions. Note that these medicines do not ``cure the illness and therefore do not stop you from spreading germs. Children should not be given medication that contains aspirin (acetylsalicylic acid) because it can cause a rare but serious illness called Reinaldo syndrome. Medicines without aspirin include acetaminophen (Tylenol) and ibuprofen (Advil, Motrin). Children younger than age 2 should not be given any pzof-byf-zaijgel cold medications without first speaking with a doctor.Seeking Medical Care You should seek medical care if you are not getting better within a week, or if your symptoms get worse. If you are elderly, , have a weak immune system, or other medical problems, call your doctor right away. It is best to call ahead of time to discuss your symptoms, if possible. This may allow you to receive the advice you need by phone. By avoiding a visit to a healthcare facility, you protect yourself from getting a new infection and protect others from catching an infection from you. If you do visit a healthcare facility, put on a mask to protect other patients and staff. It is recommended that you seek medical care for serious symptoms, such as: People with potentially life-threatening symptoms should call 911. If possible, put on a facemask before emergency medical services arrive.PROTECTING OTHERS Follow the steps below to help prevent the disease from spreading to people in your home and community.Stay home when you are sick Stay home - do not go to work, school, or public areas. Stay home for at least 24 hours after your symptoms have gone away without the use of fever-reducing medicines. If you must leave home while you are sick, try to avoid using public transportation, ride-shares, and taxis. Wear a mask if possible. Separate yourself from other people and animals in your home Stay in a specific room and away from other people in your home as much as possible. Use a separate bathroom, if available. Try to stay at least 6 feet from others. Do not handle pets or other animals while you are sick. Cover your coughs and sneezes Cover your mouth and nose with a tissue when you cough or sneeze. Throw used tissues in a lined trash can; immediately wash your hands. Avoid sharing personal household items Do not share dishes, drinking glasses, cups, eating utensils, towels, or bedding with other people or pets in your home. Wash them thoroughly with soap and water after use. Clean your hands often Wash your hands often with soap and water for at least 20 seconds. If soap and water are not available, clean your hands with an alcohol-based hand trial examiner that contains at least 60% alcohol, covering all surfaces of your hands and rubbing them together until they feel dry. Use soap and water if your hands are visibly dirty. Clean all ``high-touch surfaces every day High touch surfaces include counters, tabletops, doorknobs, bathroom fixtures, toilets, phones, keyboards, tablets, and bedside tables. Also, clean any surfaces that may have body fluids on them. Use a household cleaning spray or wipe, according to the product label instructions. COVID-19 (Novel Coronavirus) FAQs for Inquiring Patients What do you do if you are worried that you have been exposed to COVID-19 but are without any symptoms? If you develop symptoms that may indicate an infection, contact your physician. These include fever, cough, and shortness of breath. Testing is not available for asymptomatic individuals, regardless of travel history. To reduce the chance of getting sick use general infection prevention measures such as hand washing, covering your mouth and nose when you cough or sneeze and discarding any tissues carefully, and staying home when you are sick.Can exceptions be made for patients who are really worried and want to be tested? Presently testing is only available through the [facility] of Public Health and Centers for Disease Control and Prevention. Only patients who meet the updated COVID-19 PUI definition may be tested. We do not control or set the PUI definition or evaluation criteria. We are unable to provide testing to patients who do not meet the strict criteria. Should patients cancel or postpone an upcoming trip? The decision about travel is personal and should be made in the context of a persons underlying health conditions, reason for travel and necessity of travel. Travel insurance generally does not cover cancellations due to concerns of infectious disease outbreaks. The Center for Disease Control has a section on travel notices. Situations are changing frequently and you should monitor the site for updates. Should situations change rapidly in a foreign country while they are traveling, you could be subject to quarantine or restrictions upon return to the [place]. It is best to have a plan on how to return urgently if needed during a trip abroad. Because of how air circulates and is filtered on airplanes, most viruses do not spread easily on airplanes. CDC does not recommend use of facemasks during air travel.What other general precautions are advised? Patients should be instructed to: Avoid close contact with people who are sick. Avoid touching your eyes, nose and mouth. Stay home from work or school when they are sick. If you have a fever, you should remain home until 24 hours after fever resolves. Clean and disinfect frequently touched objects and surfaces using a regular household cleaning spray or wipe. Sneeze/cough into their elbow, not your hand. Practice frequent hand hygiene with soap and water (at least 20 seconds) or alc ohol-based hand rub. Consider avoiding crowded places or mass gatherings, especially if you are immunocompromised or have chronic lung disease. There is no evidence to support transmission of COVID-19 from goods imported from [place]. Are there any special precautions that are recommended if I am ? There is not yet any information available about the susceptibility of women to COVID-19. As a general rule, women may be more susceptible to viral respiratory infections and at risk for more severe illness. The CDC guidance for COVID-19 and has answers to questions about transmission during delivery, as well as other situations. Should food, water, or medications be stockpiled? Should people telecommute? The CDC has excellent information on this. Please visit the CDCs guidance for getting your household ready for COVID-19. What should I do if I start feeling sick at work? And what should the workplace do for anyone exposed? Anyone who is sick with a fever and cough should stay home from work until at least 24 hours after resolution of fever, regardless of concerns for COVID-19. It is still influenza (flu) season and influenza remains far more common. Justification of Admission: Justification of Admission: Justification of Admission Dx: N/A Angina: New-Onset Problem Qualifiers BHANU MARTINEZ DO Oct 12, 2019 21:31
[2019-10-12] MEDS ORDERED: IV NORMAL SALINE 1,000ML 1,000 ML IV SCH (22:15)
[2019-10-12] MEDS ORDERED: ASPIRIN CHEWABLE 81 MG TABLET. PO ONE (22:15)
[2019-10-12] MEDS ORDERED: METO25TA4 PO (22:43)
[2019-10-12 22:47] LABS: BASO # 0.1 x10^3/uL (0.0-0.2); BASO % 1 % (0-3); EOS # 0.1 x10^3/uL (0.0-0.7); EOS % 2 % (0-3); HEMATOCRIT 46.6 % (39.0-53.0); HEMOGLOBIN 16.1 g/dL (13.0-17.5); LYMPH # 1.3 x10^3/uL (1.0-4.8); LYMPH % 22 % (24-48); MEAN CORPUSCULAR HEMOGLOBIN 33 pg (25-35); MEAN CORPUSCULAR HGB CONC 35 g/dL (31-37); MEAN CORPUSCULAR VOLUME 94 fL (79-100); MONO # 0.5 x10^3/uL (0.0-1.1); MONO % 9 % (0-9); NEUT # 3.9 x10^3uL (1.8-7.7); NEUT % 66 % (31-73); PLATELET COUNT 98 x10^3/uL (140-400); RED BLOOD COUNT 4.94 x10^6/uL (4.30-5.70); RED CELL DISTRIBUTION WIDTH 13.3 % (11.5-14.5); WHITE BLOOD COUNT 5.9 x10^3/uL (4.0-11.0)
[2019-10-12 22:54] LABS: CALCIUM 8.9 mg/dL (8.5-10.1); CREATININE 1.3 mg/dL (0.7-1.3); GFR 58.9; POTASSIUM 3.7 mmol/L (3.5-5.1)
[2019-10-12 23:00] LABS: ALBUMIN 3.7 g/dL (3.4-5.0); ALBUMIN/GLOBULIN RATIO 0.8 (1.0-1.7); TOTAL BILIRUBIN 0.4 mg/dL (0.2-1.0); TOTAL PROTEIN 8.2 g/dL (6.4-8.2)
[2019-10-12 23:08] LABS: PLT ESTIMATE DECREASED (ADEQUATE)
--- NOTE | 2019-10-12 23:15 | RAD ---
PORTABLE CHEST 1V Clinical History: Reason: cp / Spl. Instructions: / History: Technique: AP view of the chest was obtained at 10/12/2019 10:00 PM. Comparison: August 11, 2019. Findings: The cardiomediastinal silhouette is normal. The pulmonary vasculature is normal. The lungs and pleural margins are clear. Impression: No evidence of an acute cardiopulmonary process. Electronically signed by: Clifford Sim III, MD (10/12/2019 11:12 PM) [facility]
[2019-10-12 23:30] VITALS: BP 136/80
--- NOTE | 2019-10-12 23:45 | EKG ---
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
== END 2019-10-12 23:45 | disposition home or self-care (01) ==
LOC: ER 21:13
DX: U07.1 COVID-19 (principal); B34.9 Viral infection, unspecified; R74.0 Nonspecific elevation of levels of transaminase and lactic acid dehydrogenase [LDH]; I10 Essential (primary) hypertension; E11.9 Type 2 diabetes mellitus without complications; E78.00 Pure hypercholesterolemia, unspecified; F17.210 Nicotine dependence, cigarettes, uncomplicated; Z88.0 Allergy status to penicillin
CPT/HCPCS: 36415; 71045; 80053; 83690; 84484; 85025; 93005; 96360; 99285; C9803; J7030; U0003

== ENCOUNTER 2019-11-29 00:27 | Emergency (ER) | payer OTHER ==
[~2019-11-29] VITALS: Ht 185.4 cm; Wt 131.0 kg
[~2019-11-29 00:27] MED LIST changes: +METO25TA4 PO
[2019-11-29] MEDS ORDERED: IV NORMAL SALINE 1,000ML 1,000 ML IV ONE (01:00)
[2019-11-29 01:14] LABS: BARBITURATES NEG (NEG); BENZODIAZEPINES NEG (NEG); CANNABINOIDS NEG (NEG); COCAINE NEG (NEG); METHADONE NEG (NEG); OPIATES NEG (NEG); PHENCYCLIDINE NEG (NEG)
[2019-11-29 01:15] LABS: CALCIUM 8.7 mg/dL (8.5-10.1); CREATININE 1.1 mg/dL (0.7-1.3); GFR 71.1; POTASSIUM 3.3 mmol/L (3.5-5.1)
--- NOTE | 2019-11-29 01:17 | PHYS DOC ---
Past History Past Medical History: Diabetes, High Cholesterol, Hypertension Past Surgical History: Cervical Fusion Additional Past Surgical Histo: CERVICAL FUSION Smoking: Cigarettes Alcohol Use: Occasionally Drug Use: None General Adult EDM: Chief Complaint: CHEST PAIN HPI: HPI: 49-year-old male presents with chest pain. The patient was sitting in his chair watching TV about an hour and a half after he ate dinner when he started to have a warm sensation come over his central chest and radiate to the left. It extended into his left arm and he has some shortness of breath. He denies diaphoresis. The feeling went down his arm and he has some tingling in his fingers. He admits to shallow rapid breathing once this episode started. He is feeling better at this time, but there is still a mild sensation in his central chest. The patient was seen with similar symptoms recently in this emergency room. He was kept overnight for troponin trending and then went home with no further intervention. He had a stress test about a year and a half ago that was reportedly negative. He denies fever chills. Review of Systems: Review of Systems: Constitutional: Denies fever or chills Eyes: Denies change in visual acuity HENT: Denies nasal congestion or sore throat Respiratory: Denies cough Cardiovascular: Chest pain GI: Denies abdominal pain, nausea, vomiting, bloody stools or diarrhea : Denies dysuria Musculoskeletal: Denies back pain or joint pain Integument: Denies rash Neurologic: Denies headache, focal weakness or sensory changes Endocrine: Denies polyuria or polydipsia Lymphatic: Denies swollen glands Psychiatric: Denies depression or anxiety Current Medications: Current Meds: Current Medications Medications (Trade) Dose Ordered Sig/Yrn Start Time Stop Time Status Last Admin Dose Admin Sodium Chloride 1,000 ml @ 1,000 mls/hr 1X ONCE 11/29/19 01:00 11/29/19 01:59 11/29/19 00:56 1,000 MLS/HR Allergies: Allergies: Allergies Coded Allergies Type Severity Reaction Last Updated Verified Penicillins Allergy Unknown 10/12/19 Yes Physical Exam: PE: Constitutional: Well developed, well nourished, obese, no acute distress, non- toxic appearance. [] HENT: Normocephalic, atraumatic, bilateral external ears normal, oropharynx moist, no oral exudates, nose normal. [] Eyes: PERRLA, EOMI, conjunctiva normal, no discharge. [] Neck: Normal range of motion, no tenderness, supple, no stridor. [] Cardiovascular: Heart rate regular rhythm, no murmur [] Lungs & Thorax: Bilateral breath sounds clear to auscultation [] Abdomen: Bowel sounds normal, soft, no tenderness, no masses, no pulsatile masses. [] Skin: Warm, dry, no erythema, no rash. [] Back: No tenderness, no CVA tenderness. [] Extremities: No tenderness, no cyanosis, no clubbing, ROM intact, no edema. [] Neurologic: Alert and oriented X 3, normal motor function, normal sensory funct ion, no focal deficits noted. [] Psychologic: Affect normal, judgement normal, mood normal. [] Current Patient Data: Vital Signs: Vital Signs Date Time Temp Pulse Resp B/P (MAP) Pulse Ox O2 Delivery O2 Flow Rate FiO2 11/29/19 00:28 96.8 79 20 172/90 (117) 97 Room Air EKG: EKG: Sinus rhythm, rate 78, leftward axis, no ST elevations or depressions. [] Radiology/Procedures: Radiology/Procedures: [] Heart Score: Risk Factors: Risk Factors: DM, Current or recent (<one month) smoker, HTN, HLP, family history of CAD, obesity. Risk Scores: Score 0 - 3: 2.5% MACE over next 6 weeks - Discharge Home Score 4 - 6: 20.3% MACE over next 6 weeks - Admit for Clinical Observation Score 7 - 10: 72.7% MACE over next 6 weeks - Early Invasive Strategies Course & Med Decision Making: Course & Med Decision Making Pertinent Labs and Imaging studies reviewed. (See chart for details) Patient's EKG is unremarkable. His chest x-ray is negative for acute findings. His KUB is unremarkable. His troponin is normal. His labs are unremarkable except for a glucose of 199. Did let the patient know he may be borderline diabetic. Not sure if this would cause the symptoms he is experiencing. He also has some very slightly elevated liver enzymes. This could be GERD driven or anxiety or borderline diabetes. I did give the patient 20 of Pepcid and 40 of Protonix IV. The patient does state feeling much better. His pressure/bloating sensation has resolved. I am going to have him do a trial of Nexium [id number] for 14 days to see if this helps with his symptoms. He will follow-up with his primary care physician. His symptoms do not appear to be cardiopulmonary in nature at this time. He is stable for discharge. [] Maged Disclaimer: Maged Disclaimer: This electronic medical record was generated, in whole or in part, using a voice recognition dictation system. Departure Departure: Impression: Primary Impression: Chest pain Qualified Codes: R07.89 - Other chest pain Additional Impression: GERD (gastroesophageal reflux disease) Disposition: 01 DC HOME SELF CARE/HOMELESS Condition: STABLE Referrals: KODAK HERNANDEZ MD (PCP) Patient Instructions: Chest Pain (Nonspecific), [id number] Additional Instructions: Try taking generic Nexium (or similar) 20 mg tablet/capsule daily for 14 days. You can buy these [id number]. CARMEN MARTINEZ DO Nov 29, 2019 01:17
[2019-11-29 01:21] LABS: ALBUMIN 3.5 g/dL (3.4-5.0); ALBUMIN/GLOBULIN RATIO 0.8 (1.0-1.7); TOTAL BILIRUBIN 0.4 mg/dL (0.2-1.0); TOTAL PROTEIN 7.7 g/dL (6.4-8.2)
[2019-11-29 01:23] LABS: AMPHETAMINE/METHAMPHETAMINE NEG (NEG)
[2019-11-29 01:25] LABS: BILIRUBIN,URINE NEG (NEG); CLARITY,URINE CLEAR; COLOR,URINE YELLOW; GLUCOSE,URINE 250 mg/dL (NEG)
[2019-11-29 01:26] LABS: BACTERIA,URINE 0 /HPF (0-FEW); NITRITE,URINE NEG (NEG); RBC,URINE 0 /HPF (0-2); UROBILINOGEN,URINE 0.2 mg/dL (0.2 mg/dL); WBC,URINE RARE /HPF (0-4)
[2019-11-29 01:28] LABS: BASO # 0.1 x10^3/uL (0.0-0.2); BASO % 1 % (0-3); EOS # 0.2 x10^3/uL (0.0-0.7); EOS % 2 % (0-3); HEMATOCRIT 42.8 % (39.0-53.0); HEMOGLOBIN 14.5 g/dL (13.0-17.5); LYMPH # 2.5 x10^3/uL (1.0-4.8); LYMPH % 25 % (24-48); MEAN CORPUSCULAR HEMOGLOBIN 32 pg (25-35); MEAN CORPUSCULAR HGB CONC 34 g/dL (31-37); MEAN CORPUSCULAR VOLUME 95 fL (79-100); MONO # 0.9 x10^3/uL (0.0-1.1); MONO % 9 % (0-9); NEUT # 6.4 x10^3uL (1.8-7.7); NEUT % 63 % (31-73); PLATELET COUNT 128 x10^3/uL (140-400); RED BLOOD COUNT 4.52 x10^6/uL (4.30-5.70); WHITE BLOOD COUNT 10.1 x10^3/uL (4.0-11.0)
[2019-11-29] MEDS ORDERED: PANTOPRAZOLE IV 40 MG VIAL. IVP ONE (01:30)
[2019-11-29] MEDS ORDERED: FAMOTIDINE 20 MG/2 ML VIAL IVP ONE (01:30)
--- NOTE | 2019-11-29 02:13 | RAD ---
AP chest, abdomen one view. HISTORY: Chest pain, upper abdominal pain CHEST: AP view was taken of the chest. Lungs are free of infiltrates. There is no effusion. Heart is normal in size. ABDOMEN: Supine views were taken of the abdomen. Bowel pattern is normal without obstruction. There are no abnormal calcifications. IMPRESSION: 1. No acute chest disease. 2. No bowel obstruction or acute finding in the abdomen. Electronically signed by: Douglas Pollock MD (11/29/2019 2:11 AM) [id number]
[2019-11-29 02:40] VITALS: BP 136/75
--- NOTE | 2019-11-29 04:10 | EKG ---
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
== END 2019-11-29 02:43 | disposition home or self-care (01) ==
LOC: ER 00:27
DX: K21.9 Gastro-esophageal reflux disease without esophagitis (principal); R07.89 Other chest pain; R20.2 Paresthesia of skin; R06.02 Shortness of breath; E11.9 Type 2 diabetes mellitus without complications; E78.00 Pure hypercholesterolemia, unspecified; I10 Essential (primary) hypertension; F17.210 Nicotine dependence, cigarettes, uncomplicated; Z98.890 Other specified postprocedural states; Z88.0 Allergy status to penicillin
CPT/HCPCS: 36415; 71045; 74018; 80053; 80307; 81001; 84484; 85025; 93005; 96361; 96374; 96375; 99285; C9113; J3490; J7030

== ENCOUNTER 2020-05-05 21:14 | Emergency (ER) | payer OTHER ==
[~2020-05-05] VITALS: Ht 185.4 cm; Wt 131.0 kg
[2020-05-05 21:14] VITALS: BP 133/78
[~2020-05-05 21:14] MED LIST changes: +LISI10TA16 PO; -LISI10TA2 PO
[2020-05-05] MEDS ORDERED: ACETAMINOPHEN 500 MG TABLET PO ONE ×2 (21:36→22:00)
--- NOTE | 2020-05-05 21:39 | PHYS DOC ---
Past History Past Medical History: Diabetes, High Cholesterol, Hypertension Past Surgical History: Cervical Fusion Additional Past Surgical Histo: CERVICAL FUSION Smoking: Cigarettes Alcohol Use: Occasionally Drug Use: None General Adult EDM: Chief Complaint: FEVER HPI: HPI: Patient is a 49-year-old male coming in via EMS for flulike symptoms. Patient states symptoms started after he got off work 1 PM about 8 hours prior to arrival. Patient states he has had a cough productive of yellow phlegm, body aches, diffuse joint stiffness, one episode of vomiting, 3 episodes of diarrhea. Says the emesis is nonbloody or bilious, no blood in stools. Has had a fever at home of 102 but has not taken any medications prior to arrival. No known sick contacts. Patient tested positive for COVID-19 in September (about 7 months ago) and states he only had loss of smell and taste. Has not gotten his flu or Covid vaccines. Denies any lower extremity edema or calf pain. Review of Systems: Review of Systems: All other systems within normal limits except for as noted in the HPI Current Medications: Current Meds: Current Medications Medications (Trade) Dose Ordered Sig/Yrn Start Time Stop Time Status Last Admin Dose Admin Acetaminophen (Tylenol) 500 mg STK-MED ONCE 05/05/20 21:36 05/05/20 21:36 DC Famotidine (Pepcid Vial) 20 mg 1X ONCE 05/05/20 22:00 05/05/20 22:01 05/05/20 21:33 20 MG Ondansetron HCl (Zofran) 4 mg 1X ONCE 05/05/20 22:00 05/05/20 22:01 05/05/20 21:32 4 MG Sodium Chloride 1,000 ml @ 1,000 mls/hr 1X ONCE 05/05/20 22:00 05/05/20 22:59 05/05/20 21:32 1,000 MLS/HR Allergies: Allergies: Allergies Coded Allergies Type Severity Reaction Last Updated Verified Penicillins Allergy Unknown 10/12/19 Yes Physical Exam: PE: Constitutional: Well developed, well nourished, no acute distress, non-toxic appearance. [] HENT: Normocephalic, atraumatic, bilateral external ears normal, nose normal. [] Eyes: PERRLA, conjunctiva normal, no discharge. [] Neck: No rigidity, supple, no stridor. [] Cardiovascular: Tachycardic with regular rhythm, brisk cap refill [] Lungs & Thorax: Non labored symmetric respirations, no tachypnea or respiratory distress. Breath sounds clear to auscultation [] Abdomen: Soft, nondistended. Skin: Warm, dry, no erythema, no rash. [] Back: Unremarkable Extremities: No deformities, range of motion grossly intact, no lower extremity edema [] Neurologic: Alert and oriented X 3, no focal deficits noted. [] Psychologic: Affect normal, judgement normal, mood normal. [] EKG: EKG: [] Radiology/Procedures: Radiology/Procedures: Single view chest dated 05/05/2020: Comparison made to 03/31/2019. Clinical Indication: Cough and fever. Findings: Single upright portable exam of the chest was performed. Heart size and mediastinal contours are within normal limits given technique. The lungs are clear without evidence of focal consolidation. Vascular interstitium is within normal limits. Impression:: Negative portable chest. CT ABDOMEN+PELVIS W Clinical Indication: Reason: sepsis, vomiting, diarrhea Comparison: None. Technique: Helical CT imaging of the abdomen and pelvis is performed after 75 cc of Omnipaque 300 IV contrast. Oral contrast not administered. Findings: Calcified granuloma in the right middle lobe. Minimal atelectasis or scarring in the inferior lingula. Lung bases otherwise clear. Cardiac size normal. There is fatty infiltration of the liver. Focal fatty sparing along the gallbladder fossa. The gallbladder, spleen, pancreas, adrenal glands, and abdominal aorta are normal. Kidneys enhance symmetrically, no hydronephrosis. The stomach is unremarkable. Small bowel is mostly fluid filled. Several loops are upper limits of normal in caliber. There is no evidence of obstruction. The appendix is normal. There is no colon wall thickening. There is no abdominal adenopathy or free fluid. There is mild pelvic free fluid, abnormal. The urinary bladder is normal. Prostate size normal. There is bilateral L4 spondylolysis. There is grade 1 anterolisthesis of L4 on L5. There is mild grade 1 retrolisthesis of L3 on L4 and L2 on L3. There is transitional lumbosacral anatomy. IMPRESSION: 1. Small bowel is mostly fluid-filled, several loops are upper normal limits of normal in caliber. There is no evidence of obstruction. Finding may be due to enteritis or relate to provided history of diarrhea. 2. Mild pelvic free fluid, abnormal. 3. Fatty infiltration of the liver.[] Heart Score: C/O Chest Pain: No Risk Factors: Risk Factors: DM, Current or recent (<one month) smoker, HTN, HLP, family history of CAD, obesity. Risk Scores: Score 0 - 3: 2.5% MACE over next 6 weeks - Discharge Home Score 4 - 6: 20.3% MACE over next 6 weeks - Admit for Clinical Observation Score 7 - 10: 72.7% MACE over next 6 weeks - Early Invasive Strategies Course & Med Decision Making: Course & Med Decision Making Pertinent Labs and Imaging studies reviewed. (See chart for details) [] Dragon Disclaimer: Dragon Disclaimer: This electronic medical record was generated, in whole or in part, using a voice recognition dictation system. Departure Departure: Impression: Primary Impression: Vomiting and diarrhea Disposition: 01 DC HOME SELF CARE/HOMELESS Condition: STABLE Referrals: KODAK HERNANDEZ MD (PCP) Patient Instructions: Diet for Diarrhea, Adult Additional Instructions: You have been tested for or diagnosed with COVID-19. It is an infection caused by a new type of coronavirus. COVID-19 will cause cold-like or mild flu symptoms in most. It can cause more severe symptoms like problems breathing in some. There is no treatment for COVID-19. The body will clear the infection over time. Self-care will help to ease discomfort. Steps to Take: Self-Care Rest as needed. Healthy habits may help you feel better. Steps include: Choose healthy foods including fruits and vegetables. Drink water throughout the day. Get plenty of sleep each night. If you smoke, try to quit. It may ease breathing. Avoid alcohol. Keep Others Healthy The virus can spread to others. Droplets are released every time you sneeze or cough. The droplets can get into the mouth, nose, or eyes of people near you and lead to infection. To lower the chances of spreading COVID-19 to others: Stay at home until your doctor has said it is safe to leave. If you tested positive this will mean staying isolated until both of the following are true: At least 7 days have passed since the start of illness. You are free of fever for at least 72 hours without the use of medicine. During this time: - Avoid public areas, events, or transportation. Do not return to work or school until your doctor has said it is safe to do so. - Call ahead if you need to go to a medical center. Let them know you may have COVID-19. It will help them guide you where to go. They may also ask you to wear a facemask when you come to the office. - If you call for emergency medical services, let them know you may have COVID- 19. While at home: - Try to avoid close contact with others. Stay about 6 feet away. - If possible, spend most of your time in a separate room from others. - Use a face mask if you will be in close contact with others such as sharing a room or vehicle. - Have someone wipe down common surfaces in the home. Use household tram inspector every day on areas like doorknobs, counters, or sinks. - Cough or sneeze into a tissue. Throw the tissue away right after use. If a tissue is not available, cough or sneeze into your elbow. - Wash your hands often. Wash them after sneezing or coughing. Use soap and water and wash for at least 20 seconds. Alcohol based hand flask cleaner can be used if soap and water is not available. - Do not prepare food for others. Avoid sharing personal items like forks, spoons, or toothbrushes. - Avoid close contact with pets while you are sick. There is no evidence of the virus passing to pets. This is a safety step until more is known about this virus. Isolation can be frustrating. Social interaction can help. Keep in touch with friends and family through phone and tech options. You can still interact with others in your home, just keep a safe distance of about 6 feet. Follow-up: Your doctors office will check in with you to see if there are any changes in your health. You may be asked to keep track of symptoms to share with them. They will also let you know when you are clear to be in public again. Problems to Look Out For: Contact your doctor if your recovery is not going as you expect. Get emergency care if you have problems such as: - Trouble breathing - Nonstop chest pain or pressure - Changes in awareness, confusion, or problems waking - Lips or face have bluish color - Worsening of symptoms If you think you have an emergency, call for emergency medical services right away. As taken from [facility] Ciprofloxacin Hcl (CIPRO) 500 Mg Tablet 1 TAB PO BID for antibiotic for 5 Days, #10 TAB 0 Refills Prov: TOMMY YI MD 05/06/20 Ondansetron Hcl (ZOFRAN) 4 Mg Tablet 1 TAB PO PRN Q6HRS PRN for NAUSEA, #6 TAB Prov: TOMMY YI MD 05/06/20 TOMMY YI MD May 05, 2020 21:39
--- NOTE | 2020-05-05 21:52 | RAD ---
Single view chest dated 05/05/2020: Comparison made to 03/31/2019. Clinical Indication: Cough and fever. Findings: Single upright portable exam of the chest was performed. Heart size and mediastinal contours are with in normal limits given technique. The lungs are clear without evidence of focal consolidation. Vascul ar interstitium is within normal limits. Impression:: Negative portable chest. Electronically signed by: Gaurav Snow MD (05/05/2020 9:50 PM) KAREN
[2020-05-05 21:59] LABS: BASO # 0.1 x10^3/uL (0.0-0.2); BASO % 1 % (0-3); EOS # 0.3 x10^3/uL (0.0-0.7); EOS % 2 % (0-3); HEMATOCRIT 50.6 % (39.0-53.0); LYMPH # 1.1 x10^3/uL (1.0-4.8); LYMPH % 8 % (24-48); MEAN CORPUSCULAR HEMOGLOBIN 32 pg (25-35); MEAN CORPUSCULAR HGB CONC 34 g/dL (31-37); MEAN CORPUSCULAR VOLUME 94 fL (79-100); MONO # 0.8 x10^3/uL (0.0-1.1); MONO % 6 % (0-9); NEUT # 11.8 x10^3uL (1.8-7.7); NEUT % 84 % (31-73); PLATELET COUNT 131 x10^3/uL (140-400); RED BLOOD COUNT 5.39 x10^6/uL (4.30-5.70); RED CELL DISTRIBUTION WIDTH 14.1 % (11.5-14.5); WHITE BLOOD COUNT 14.1 x10^3/uL (4.0-11.0)
[2020-05-05] MEDS ORDERED: FAMOTIDINE 20 MG/2 ML VIAL IVP ONE (22:00)
[2020-05-05] MEDS ORDERED: ONDANSETRON PF 4 MG/2 ML VIAL. IVP ONE (22:00)
[2020-05-05] MEDS ORDERED: IV NORMAL SALINE 1,000ML 1,000 ML IV ONE ×2 (22:00→23:00)
[2020-05-05 22:11] LABS: CALCIUM 8.9 mg/dL (8.5-10.1); CREATININE 1.2 mg/dL (0.7-1.3); GFR 64.4; POTASSIUM 3.8 mmol/L (3.5-5.1)
[2020-05-05 22:16] LABS: INFLUENZA A PATIENT NEGATIVE (NEGATIVE); INFLUENZA B PATIENT NEGATIVE (NEGATIVE)
[2020-05-05 22:23] LABS: ALBUMIN 3.8 g/dL (3.4-5.0); ALBUMIN/GLOBULIN RATIO 0.9 (1.0-1.7); TOTAL BILIRUBIN 0.8 mg/dL (0.2-1.0); TOTAL PROTEIN 8.1 g/dL (6.4-8.2)
[2020-05-05 22:24] LABS: PLT ESTIMATE DECREASED (ADEQUATE)
[2020-05-05] MEDS ORDERED: CIPROFLOXACIN HCL 500 MG TABLET PO ONE (23:30)
[2020-05-05 23:50] LABS: BACTERIA,URINE 0 /HPF (0-FEW); BILIRUBIN,URINE NEG (NEG); CLARITY,URINE CLEAR; COLOR,URINE YELLOW; GLUCOSE,URINE 500 mg/dL (NEG); NITRITE,URINE NEG (NEG); RBC,URINE 0 /HPF (0-2); SQUAMOUS EPITHELIAL CELL,UR OCC /LPF; UROBILINOGEN,URINE 0.2 mg/dL (0.2 mg/dL); WBC,URINE OCC /HPF (0-4)
[2020-05-06] MEDS ORDERED: CONTRAST GIVEN. MC PRN (00:15)
[2020-05-06] MEDS ORDERED: IOHEXOL 300 MG/ML 75 ML VIAL. IV ONE (00:30)
--- NOTE | 2020-05-06 00:49 | RAD ---
PQRS Compliance Statement: One or more of the following individualized dose reduction techniques were utilized for this examinat ion: 1. Automated exposure control 2. Adjustment of the mA and/or kV according to patient size 3. Use of iterative reconstruction technique CT ABDOMEN+PELVIS W Clinical Indication: Reason: sepsis, vomiting, diarrhea Comparison: None. Technique: Helical CT imaging of the abdomen and pelvis is performed after 75 cc of Omnipaque 300 IV contrast. Oral contrast not administered. Findings: Calcified granuloma in the right middle lobe. Minimal atelectasis or scarring in the inferior lingula . Lung bases otherwise clear. Cardiac size normal. There is fatty infiltration of the liver. Focal fatty sparing along the gallbladder fossa. The gallbl adder, spleen, pancreas, adrenal glands, and abdominal aorta are normal. Kidneys enhance symmetricall y, no hydronephrosis. The stomach is unremarkable. Small bowel is mostly fluid filled. Several loops are upper limits of no rmal in caliber. There is no evidence of obstruction. The appendix is normal. There is no colon wall thickening. There is no abdominal adenopathy or free fluid. There is mild pelvic free fluid, abnormal. The urinary bladder is normal. Prostate size normal. There is bilateral L4 spondylolysis. There is grade 1 anterolisthesis of L4 on L5. There is mild grad e 1 retrolisthesis of L3 on L4 and L2 on L3. There is transitional lumbosacral anatomy. IMPRESSION: 1. Small bowel is mostly fluid-filled, several loops are upper normal limits of normal in caliber. T here is no evidence of obstruction. Finding may be due to enteritis or relate to provided history of diarrhea. 2. Mild pelvic free fluid, abnormal. 3. Fatty infiltration of the liver. Electronically signed by: Srinivasan Valencia MD (05/06/2020 12:46 AM) [facility]
[2020-05-06] MEDS ORDERED: ONDA4TAB7 PO (01:00)
[2020-05-06] MEDS ORDERED: CIPR500T94 PO (01:00)
== END 2020-05-06 01:05 | disposition home or self-care (01) ==
LOC: ER 21:14
DX: R11.10 Vomiting, unspecified (principal); R19.7 Diarrhea, unspecified; R05 Cough; M79.10 Myalgia, unspecified site; E11.9 Type 2 diabetes mellitus without complications; E78.00 Pure hypercholesterolemia, unspecified; I10 Essential (primary) hypertension; F17.210 Nicotine dependence, cigarettes, uncomplicated; Z20.822 Contact with and (suspected) exposure to COVID-19; Z88.0 Allergy status to penicillin
CPT/HCPCS: 36415; 71045; 74177; 80053; 81001; 83605; 84484; 85025; 87804; 96361; 96374; 96375; 99285; C9803; J2405; J3490; J7030; Q9967; U0003; U0005